=== PATIENT | male | born 1970 | race Caucasian/White ===

== ENCOUNTER 2016-06-14 12:02 | Emergency (ER) | payer OTHER ==
[~2016-06-14] VITALS: Ht 185.4 cm; Wt 100.0 kg
[2016-06-14 12:05] VITALS: BP 136/77; PULSE 93; RESP 18; TEMP 98.1; O2SAT 98
[2016-06-14] MEDS ORDERED: GABA300C5 PO (12:25)
[2016-06-14] MEDS ORDERED: CYCL1TAB29 PO (12:25)
[2016-06-14] MEDS ORDERED: OXYC30TA PO (12:25)
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
--- NOTE | 2016-06-14 13:48 | RADRPT ---
EXAM DATE/TIME: 06/14/2016 13:13 [facility] COMPARISON: HIP RIGHT (AP&LAT 2/3VWS) WO AP PELVIS, February 11, 2016, 17:33. INDICATIONS : Pain from fall. MEDICAL HISTORY : Prior fracture. SURGICAL HISTORY : Prior surgical repair. ENCOUNTER: Initial ACUITY: 2 days PAIN SCORE: 7/10 LOCATION: Right hip. FINDINGS: There is evidence for a previous surgery. Alignment is anatomic. A fracture is not appreciated. Barr rdware is seen from previous anterior and posterior column repair. CONCLUSION: Negative for fracture. Negro Morales MD FACR on June 14, 2016 at 13:45 Board Certified Radiologist. This report was verified electronically.
--- NOTE | 2016-06-14 14:04 | PD ---
Physical Exam Date Seen by Provider: Jun 14, 2016 Narrative Patient is here with right hip injury. His leg is not shortened or malrotated but he does have pain on log rolling of the hip. Data Data Last Documented VS Vital Signs Date Time Temp Pulse Resp B/P Pulse Ox O2 Delivery O2 Flow Rate FiO2 06/14/16 12:05 98.1 93 18 136/77 98 Room Air Orders Hip, Uni(Ap&Lat) Wo Ap Pelvis (06/14/16 ) Pelvis, Ap & Judet Views, 3vws (06/14/16 ) MDM Supervised Visit with [facility]: Yes Jannet Mazariegos MD Jun 14, 2016 14:04
[2016-06-14 15:35] VITALS: BP 134/78; PULSE 92; RESP 17; O2SAT 97
== END 2016-06-14 15:56 | disposition home or self-care (01) ==
LOC: NEPA 12:02
DX: M25.551 Pain in right hip (principal); Z87.19 Personal history of other diseases of the digestive system; Z87.39 Personal history of other diseases of the musculoskeletal system and connective tissue; W01.0XXA Fall on same level from slipping, tripping and stumbling without subsequent striking against object, initial encounter
CPT/HCPCS: 72190; 73502; 99284